=== PATIENT | female | born 1990 | race Caucasian/White ===

== ENCOUNTER → 2017-11-02 | Day surgery (SDC) | payer BC ==
[~2017-11-02] MED LIST: Lactated Ringers 1,000 ML IV SCH; Lidocaine 1%/Sod Bicarbonate in NS 8.4% 1 ML Syringe IV PRN; Pregabalin 25 MG Cap PO ONE; Sodium Chloride 0.9% 10 ML Syringe FLUSH PRN; oxyCODONE ER 10 MG TAB.ER PO ONE
[2017-11-02 07:03] VITALS: BP 113/71
== END | disposition home or self-care (01) ==
LOC: JD.SDS 06:14
PROVIDERS: ATTEND Orthopaedic Surgery
DX: Z53.8 Procedure and treatment not carried out for other reasons (principal)
CPT/HCPCS: 87641; J7120

== ENCOUNTER 2017-11-13 06:06 | Day surgery (SDC) | payer BC ==
[~2017-11-13 06:06] MED LIST changes: -Lactated Ringers 1,000 ML IV SCH; +Lidocaine 1%/Sod Bicarbonate in NS 8.4% 1 ML Syringe IDERM PRN; -Lidocaine 1%/Sod Bicarbonate in NS 8.4% 1 ML Syringe IV PRN; -Pregabalin 25 MG Cap PO ONE; -oxyCODONE ER 10 MG TAB.ER PO ONE
[2017-11-13] MEDS ORDERED: Vancomycin 1 GM, Vancomycin 500 MG in Sodium Chloride 0.9% 250 ML IV ONE (06:30)
[2017-11-13] MEDS: Lactated Ringers 1,000 ML IV SCH ×2 (06:35→13:44)
[2017-11-13] MEDS ORDERED: Pregabalin 25 MG Cap PO ONE (07:00)
[2017-11-13] MEDS ORDERED: oxyCODONE ER 10 MG TAB.ER PO ONE (07:00)
[2017-11-13] MEDS ORDERED: Vancomycin 1 GM, Vancomycin 500 MG in Sodium Chloride 0.9% 500 ML IV ONE (07:02)
--- NOTE | 2017-11-13 07:28 | PCM.PREANE ---
Preanesthetic Assessment - Anesthesia/Transfusion/Family Hx Anesthesia History: Prior Anesthesia Without Reaction Family History of Anesthesia Reaction: No Transfusion History: No Prior Transfusion(s) - Review of Systems General: No Symptoms Pulmonary: No Symptoms Cardiovascular: No Symptoms Gastrointestinal: No Symptoms Neurological: No Symptoms Other: Reports: None - Physical Assessment NPO Status Date: 11/12/17 NPO Status Time: 23:50 Pulse: 88 O2 Sat by Pulse Oximetry: 96 Respiratory Rate: 16 Blood Pressure: 114/78 Temperature: 36.8 C Vital Signs: Last Vital Signs Temp 36.8 C 11/13/17 06:20 Pulse 88 11/13/17 06:20 Resp 16 11/13/17 06:20 BP 114/78 11/13/17 06:20 Pulse Ox 96 11/13/17 06:20 Height: 1.63 m Weight: 81.6 kg ASA Class: 2 Mental Status: Alert & Oriented x3 Dentition: Reports: Normal Dentition Thyro-Mental Finger Breadths: 3 Mouth Opening Finger Breadths: 3 ROM/Head Extension: Full Lungs: Clear to Auscultation, Normal Respiratory Effort Cardiovascular: Regular Rate, Regular Rhythm - Allergies Allergies/Adverse Reactions: Allergies Allergy/AdvReac Type Severity Reaction Status Date / Time No Known Allergies Allergy Verified 11/10/17 10:44 - Anesthesia Plan Pre-Op Medication Ordered: None - Acknowledgements Anesthesia Type Planned: General Anesthesia Pt an Appropriate Candidate for the Planned Anesthesia: Yes Alternatives and Risks of Anesthesia Discussed w Pt/Guardian: Yes Pt/Guardian Understands and Agrees with Anesthesia Plan: Yes PreAnesthesia Questionnaire HEENT History: Reports: Sinusitis, Other (See Below) Other HEENT History: chronic ear infections during Cardiovascular History: Reports: None Respiratory History: Reports: None Gastrointestinal History: Reports: None 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: Musculoskeletal History: Reports: Other (See Below) Other Musculoskeletal History: right ganglion removal Neurological History: Reports: None Psychiatric History: Reports: None Endocrine/Metabolic History: Reports: None Hematologic History: Reports: None Immunologic History: Reports: None Oncologic (Cancer) History: Reports: None Dermatologic History: Reports: None - Infectious Disease History Infectious Disease History: Reports: MRSA Other Infectious Disease History: MRSA 10 YEARS AGO - Past Surgical History Head Surgeries/Procedures: Reports: None HEENT Surgical History: Reports: Oral Surgery Cardiovascular Surgical History: Reports: None Respiratory Surgical History: Reports: None GI Surgical History: Reports: None Female Surgical History: Reports: D&C, Tubal Ligation Endocrine Surgical History: Reports: None Neurological Surgical History: Reports: None Musculoskeletal Surgical History: Reports: None Oncologic Surgical History: Reports: None Dermatological Surgical History: Reports: None - SUBSTANCE USE Smoking Status *Q: Light Tobacco Smoker Tobacco Use Within Last Twelve Months: Cigarettes Second Hand Smoke Exposure: No Days Per Week of Alcohol Use: 0 Number of Drinks Per Day: 1 Total Drinks Per Week: 0 Recreational Drug Use History: No - HOME MEDS Home Medications: Home Meds Cyclobenzaprine [Flexeril] 10 mg PO TID PRN #30 tab 11/13/17 [Rx] Hydrocodone/Acetaminophen [[place] 5-325] 1 - 2 tab PO Q6H PRN #40 tablet [Rx] Enoxaparin Sodium [Lovenox] 30 mg SQ BID #28 11/14/17 [Rx] - CURRENT (IN HOUSE) MEDS Current Meds: Current Medications Lactated Ringer's (Ringers, Lactated) 1,000 mls @ 125 mls/hr IV ASDIRECTED KEL Stop: 11/13/17 23:00 Last Admin: 11/13/17 06:35 Dose: 125 mls/hr Vancomycin HCl 1.5 gm/ Sodium (Chloride) 250 mls @ 250 mls/hr IV ONETIME KEL Vancomycin HCl 1 gm/Vancomycin HCl 500 mg/ Sodium Chloride 500 mls @ 333.333 mls/hr IV ONETIME ONE Stop: 11/13/17 07:59 Lidocaine/Sodium Bicarbonate (Buffered Lidocaine 1% In Ns 8.4%) 0.25 ml IDERM ONETIME PRN PRN Reason: Prior to IV Start Stop: 11/13/17 18:00 Last Admin: 11/13/17 06:35 Dose: 0.25 ml Sodium Chloride (Saline Flush) 10 ml FLUSH ASDIRECTED PRN PRN Reason: Keep Vein Open Stop: 11/13/17 18:00 Discontinued Medications Vancomycin HCl 1 gm/Vancomycin HCl 500 mg/ Sodium Chloride 250 mls @ 250 mls/ hr IV ONETIME ONE Stop: 11/13/17 07:29 Acetaminophen (Ofirmev) 100 mls @ 400 mls/hr IV ONETIME ONE Stop: 11/13/17 07:14 Last Admin: 11/13/17 07:00 Dose: 400 mls/hr Oxycodone HCl (Oxycontin) 10 mg PO ONETIME ONE Stop: 11/13/17 07:01 Pregabalin (Lyrica) 50 mg PO ONETIME ONE Stop: 11/13/17 07:01
[2017-11-13] MEDS ORDERED: EPINEPHrine 1 MG/ML 30 ML MDV ONE (07:36)
[2017-11-13] MEDS ORDERED: Bupivacaine 0.25% 30 ML SDV ONE (07:39)
[2017-11-13] MEDS ORDERED: Propofol 200 MG/20 ML SDV ONE (07:44)
[2017-11-13] MEDS ORDERED: Ondansetron 4 MG/2 ML SDV ONE ×2 (07:44→12:05)
[2017-11-13] MEDS ORDERED: Rocuronium 50 MG/5 ML Vial ONE (07:44)
[2017-11-13] MEDS ORDERED: Lidocaine 1% 4 ML ONE (07:45)
[2017-11-13] MEDS ORDERED: Midazolam 1 MG/ML 2 ML SDV ONE (07:45)
[2017-11-13] MEDS ORDERED: fentaNYL 250 MCG/5 ML SDV ONE ×2 (07:45→10:04)
[2017-11-13] MEDS ORDERED: ceFAZolin 1 GM Vial ONE (07:52)
[2017-11-13] MEDS ORDERED: HYDROmorphone 1 MG/ML Syringe ONE (09:11)
[2017-11-13] MEDS ORDERED: Lactated Ringers 1,000 ML ONE (09:15)
[2017-11-13] MEDS ORDERED: HYDROmorphone 0.5 MG/0.5 ML Syringe IVPUSH PRN (11:01)
--- NOTE | 2017-11-13 11:04 | PCM.POSTAN ---
POST ANESTHESIA ASSESSMENT - MENTAL STATUS Mental Status: Somnolent - VITAL SIGNS Pulse Rate: 85 SaO2: 93 Resp Rate: 8 Blood Pressure: 95/55 Temperature: 97.6 C - RESPIRATORY Respiratory Status: Respiratory Rate WNL, Airway Patent, O2 Saturation Stable, Supplemental Oxygen - CARDIOVASCULAR CV Status: Pulse Rate WNL, Blood Pressure Stable - GASTROINTESTINAL GI Status: No Symptoms - PAIN Pain Score: 0 - POST OP HYDRATION Hydration Status: Adequate & Stable - OBSERVATIONS Free Text/Narrative:: no anesthesia complications noted
[2017-11-13] MEDS ORDERED: Ketorolac 30 MG/ML SDV IVPUSH PRN (11:13)
[2017-11-13] MEDS: fentaNYL 100 MCG/2 ML SDV IVPUSH PRN ×2 (11:32→11:41)
--- NOTE | 2017-11-13 11:43 | CR ---
Right hip: Six fluoroscopic spot views were obtained utilizing C-arm device. Study shows arthroscopy of the right hip. Fluoroscopy time given as 122.6 seconds. Impression: 1. Procedural study as noted above. Diagnostic code #2
[2017-11-13] MEDS ORDERED: Ondansetron 4 MG/2 ML SDV IVPUSH SCH (12:10)
[2017-11-13] MEDS ORDERED: Acetaminophen/HYDROcodone 325-5 MG Tab PO PRN (12:58)
[2017-11-13 15:48] VITALS: BP 111/67
--- NOTE | 2017-11-17 08:44 | PCM.OPNOTE ---
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
--- NOTE | 2017-11-17 10:09 | OR ---
DATE OF OPERATION: 11/13/2017 SURGEON: Devang Gonzalez MD OPERATION PERFORMED: Right hip video arthroscopy with labral repair, acetabuloplasty and femoroplasty. PREOPERATIVE DIAGNOSIS: Right hip femoroacetabular impingement. POSTOPERATIVE DIAGNOSIS: Right hip femoroacetabular impingement. ANESTHESIA: General endotracheal intubation with local. ANESTHESIA PROVIDER: Sukh Landrum CRNA. MANAGER GAMING: Mini Pierre PA-C ESTIMATED BLOOD LOSS: 5 mL. COMPLICATIONS: None. CONDITION: Stable. DESCRIPTION OF PROCEDURE: The patient was identified in the preop holding area. Proper site was marked and identified by the surgeon. The patient was taken back to the operating theater where after adequate anesthesia, the patient's left lower extremity was placed in a boot and no traction was applied. Right lower extremity was then placed in a traction boot and gross traction was applied. The patient's patella was straight superoinferior with floor. At this time, the right hip was then sterilely prepped and draped in the usual sterile fashion. OR time-out was performed. The patient received 2 g IV Ancef. At this time fluoroscopy was utilized for the starting point and then 2-1/2 turns of traction was applied. Using a spinal needle, proper site was identified for the lateral portal. Incision was made and the trocar was introduced. At this time it was found to be in adequate position. Spinal needle was then used for the anterolateral portal and incision was made for this and scope trocar was placed. At this time, using a Samurai blade, takedown of the capsule was done from medially to laterally to the lateral portal. At this time, it was found to have adequate visualization of the entirety of the labrum. There was no significant fraying of the labrum. There was no chondromalacia noted either the femoral head or the acetabulum. At this time, using C-arm fluoroscopy, it was noted that the patient had significant pincer lesion both anterior and laterally. At this time with use of a cautery device, we were able to visualize the entire rim of the acetabulum from the roughly 12 o'clock position all the way to the 9 o'clock position. At this time with use of 4-0 full-radius bur, I was able to resect roughly 7 mm of pincer lesion noted on the anterior and lateral aspect of the acetabulum. At this time, the patient was noted to have need for stabilization of the labrum after the acetabuloplasty. Starting on most anterior aspect we were able to place 2.3 mm Sravan all-inside knotless anchors for 2.3 mm Sravan knotless anchors starting at the 12 o'clock position and then placing [address] to the lateral position. It was noted to have good watertight repair of the labrum at this point. The C-arm fluoroscopy showed good acetabuloplasty with resection of the pincer lesion at this time. At this time, attention was turned to the femur. On direct visualization under manipulation of the femur on flexion and internal rotation, it was noted to have a CAM lesion noted near the head and neck junction. At this time, using a 4-0 full-radius bur, I was able to resect without doing much of the T-capsulotomy of the small CAM lesion that was there. It was noted to have significant resection of the CAM lesion where the previous chondromalacia changes were noted at the head and neck junction. At this time, the patient's hip was brought through range of motion. There were no signs of femoral or acetabular impingement with flexion, abduction and internal rotation. Patient subsequently did not have a capsular repair as her capsule was tight throughout the case and I did not do a T- capsulotomy. At this time, excess saline was drained from the hip. A 3-0 nylon simple suture was used for closure of the portal incisions. Marcaine 0.25% was injected near the lateral femoral cutaneous nerve at the ASIS. The patient was subsequently had a sterile soft dressing applied and was sent to PACU in stable condition. RASHAWN /[id number]
== END 2017-11-13 15:20 | disposition home or self-care (01) ==
LOC: JD.SDS 06:06
PROVIDERS: ATTEND Orthopaedic Surgery
DX: M25.851 Other specified joint disorders, right hip (principal); Z98.51 Tubal ligation status; F17.210 Nicotine dependence, cigarettes, uncomplicated
CPT/HCPCS: 29914; 29915; 76000; A9270; C1713; J0171; J0690; J1170; J1885; J2250; J2405; J3010; J3370; J3490; J7040; J7120; J2704

== ENCOUNTER 2021-06-23 07:38 | Day surgery (SDC) | payer BC ==
--- NOTE | 2021-06-22 13:03 | PCM.PREANE ---
<Tammi Oneal - Last Filed: 06/22/21 13:02> Preanesthetic Assessment - Procedure Proposed Procedure: Laparoscopic Assisted Vaginal Hysterectomy - Anesthesia/Transfusion/Family Hx Anesthesia History: Prior Anesthesia Without Reaction Transfusion History: No Prior Transfusion(s) Intubation History: Unknown - Review of Systems Pulmonary: No Symptoms (quit smoking in 2018/Vapes: ETOH:) - Physical Assessment NPO Status Date: 06/22/21 Vital Signs: HR: Sat: Temp: Resp: B/P: Height: 1.63 m ASA Class: 2 Mental Status: Alert & Oriented x3 - Allergies Allergies/Adverse Reactions: Allergies Allergy/AdvReac Type Severity Reaction Status Date / Time No Known Allergies Allergy Verified 06/22/21 15:33 - Anesthesia Plan Pre-Op Medication Ordered: None - Acknowledgements Anesthesia Type Planned: General Anesthesia Pt an Appropriate Candidate for the Planned Anesthesia: Yes Alternatives and Risks of Anesthesia Discussed w Pt/Guardian: Yes Pt/Guardian Understands and Agrees with Anesthesia Plan: Yes PreAnesthesia Questionnaire HEENT History: Reports: Sinusitis, Other (See Below) Other HEENT History: chronic ear infections during Cardiovascular History: Reports: None Respiratory History: Reports: None Gastrointestinal History: Reports: None RN INTERNSHIP History: Reports: Musculoskeletal History: Reports: Other (See Below) Other Musculoskeletal History: right ganglion removal Neurological History: Reports: None Psychiatric History: Reports: None Endocrine/Metabolic History: Reports: None Hematologic History: Reports: None Immunologic History: Reports: None Oncologic (Cancer) History: Reports: None Dermatologic History: Reports: None - Infectious Disease History Infectious Disease History: Reports: MRSA Other Infectious Disease History: MRSA 10 YEARS AGO - Past Surgical History Head Surgeries/Procedures: Reports: None HEENT Surgical History: Reports: Oral Surgery Cardiovascular Surgical History: Reports: None Respiratory Surgical History: Reports: None GI Surgical History: Reports: None Female Surgical History: Reports: D&C, Tubal Ligation Endocrine Surgical History: Reports: None Neurological Surgical History: Reports: None Musculoskeletal Surgical History: Reports: None Oncologic Surgical History: Reports: None Dermatological Surgical History: Reports: None - HOME MEDS Home Medications: Home Meds . [No Known Home Meds] 06/22/21 [History] <Supriya Reyes - Last Filed: 06/23/21 08:07> Preanesthetic Assessment - Anesthesia/Transfusion/Family Hx Family History of Anesthesia Reaction: No - Review of Systems General: No Symptoms Cardiovascular: No Symptoms Gastrointestinal: No Symptoms Neurological: No Symptoms Other: Reports: None - Physical Assessment Weight: 75.7 kg Airway Class: Mallampati = 2 Dentition: Reports: Normal Dentition Thyro-Mental Finger Breadths: 3 Mouth Opening Finger Breadths: 3 ROM/Head Extension: Full Lungs: Clear to Auscultation, Normal Respiratory Effort Cardiovascular: Regular Rate, Regular Rhythm - Lab Values: Laboratory Last Values WBC 4.01 K/mm3 (3.98-10.04) 06/23/21 07:44 RBC 4.54 M/mm3 (3.98-5.22) 06/23/21 07:44 Hgb 14.2 gm/dl (11.2-15.7) D 06/23/21 07:44 Hct 41.0 % (34.1-44.9) 06/23/21 07:44 MCV 90.3 fl (79.4-94.8) D 06/23/21 07:44 MCH 31.3 pg (25.6-32.2) 06/23/21 07:44 MCHC 34.6 g/dl (32.2-35.5) 06/23/21 07:44 RDW Std Deviation 39.3 fL (36.4-46.3) 06/23/21 07:44 Plt Count 197 K/mm3 (182-369) 06/23/21 07:44 MPV 10.6 fl (9.4-12.3) 06/23/21 07:44 Neut % (Auto) 50.4 % (34.0-71.1) 06/23/21 07:44 Lymph % (Auto) 33.2 % (19.3-51.7) 06/23/21 07:44 Love % (Auto) 13.5 % (4.7-12.5) H 06/23/21 07:44 Eos % (Auto) 2.7 (0.7-5.8) 06/23/21 07:44 Baso % (Auto) 0.2 % (0.1-1.2) 06/23/21 07:44 Neut # (Auto) 2.02 K/mm3 (1.56-6.13) 06/23/21 07:44 Lymph # (Auto) 1.33 K/mm3 (1.18-3.74) 06/23/21 07:44 Love # (Auto) 0.54 K/mm3 (0.24-0.36) H 06/23/21 07:44 Eos # (Auto) 0.11 K/mm3 (0.04-0.36) 06/23/21 07:44 Baso # (Auto) 0.01 K/mm3 (0.01-0.08) 06/23/21 07:44 - Blood Blood Available: No Product(s) Available: None PreAnesthesia Questionnaire - CURRENT (IN HOUSE) MEDS Current Meds: Current Medications Lactated Ringer's (Ringers, Lactated) 1,000 mls @ 125 mls/hr IV ASDIRECTED KEL Stop: 06/23/21 23:00 Lidocaine/Sodium Bicarbonate (Lidocaine 1%/Sod Bicarbonate In Ns 8.4% 1 Ml Syringe) 0.25 ml IDERM ONETIME PRN PRN Reason: Prior to IV Start Stop: 06/23/21 18:00 Sodium Chloride (Sodium Chloride 0.9% 10 Ml Syringe) 10 ml FLUSH ASDIRECTED PRN PRN Reason: Keep Vein Open Stop: 06/23/21 18:00 Discontinued Medications Fentanyl (Fentanyl 250 Mcg/5 Ml Sdv) Confirm Administered Dose 250 mcg .ROUTE .STK-MED ONE Stop: 06/23/21 06:57 Lidocaine HCl (Xylocaine-Mpf 1%) Confirm Administered Dose 4 mls @ as directed .ROUTE .STK-MED ONE Stop: 06/23/21 06:56 Midazolam HCl (Midazolam 1 Mg/Ml 2 Ml Sdv) Confirm Administered Dose 2 mg .ROUTE .STK-MED ONE Stop: 06/23/21 06:57 Ondansetron HCl (Ondansetron 4 Mg/2 Ml Sdv) Confirm Administered Dose 4 mg .ROUTE .STK-MED ONE Stop: 06/23/21 06:56 Propofol (Propofol 200 Mg/20 Ml Sdv) Confirm Administered Dose 200 mg .ROUTE .STK-MED ONE Stop: 06/23/21 06:56 Rocuronium [place] (Rocuronium 50 Mg/5 Ml Vial) Confirm Administered Dose 50 mg .ROUTE .STK-MED ONE Stop: 06/23/21 06:56
[~2021-06-23 07:38] MED LIST changes: +Lidocaine 1% 4 ML ONE; +Midazolam 1 MG/ML 2 ML SDV ONE; +Ondansetron 4 MG/2 ML SDV ONE; +Propofol 200 MG/20 ML SDV ONE; +Rocuronium 50 MG/5 ML Vial ONE; +fentaNYL 250 MCG/5 ML SDV ONE
[2021-06-23] MEDS: Lactated Ringers 1,000 ML IV SCH ×2 (07:44→09:03)
--- NOTE | 2021-06-23 07:53 | PCM.OPNOTE ---
- General Post-Op/Procedure Note Date of Surgery/Procedure: 06/23/21 Operative Procedure(s): Laparoscopic assisted vaginal hysterectomy Findings: Grossly normal appearance of the uterus and bilateral fallopian tubes. Slight thickening/reaction thought to maybe be from recent LEEP Pre Op Diagnosis: Cervical dysplasia. 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 The patient was taken to the Operating Room where general anesthesia was induced without complication. The patient was placed in dorsal lithotomy with Nikhil Stirrups and an exam under anesthesia revealed the findings detailed above. The patient was then prepped and draped in the usual sterile fashion. A sterile bivalve speculum was placed into the vagina and the anterior lip of the cervix was grasped with a single tooth tenaculum and a Complete Solar uterine manipulator was placed to allow uterine manipulation throughout the procedure. The speculum and single tooth tenaculum were removed from the vagina. A Quinteros catheter was placed in sterile fashion. Attention was then turned to the patients abdomen where a Veress needle was carefully introduced into the peritoneal cavity while tenting the abdominal wall. Intraperitoneal placement was confirmed by free flow of saline into the abdomen from a syringe open to gravity and with a low intraabdominal pressure with insufflation of C02 gas on low flow. The gas was increased to high flow and a pneumoperitoneum was obtained with C02 gas to a pressure of 15 mm Hg. A 5 mm skin incision was made in a vertical fashion in the umbilical fold and a 5 mm blunt trocar was inserted into the abdomen with direct visualization of the laparoscope through the clear view trocar lens. 5 mm skin incisions were made in both the left and right lower quadrants approximately 10 cm lateral and 3 cm inferior to the umbilicus. 5 mm blunt trocars were inserted into the abdomen under direct visualization with care to avoid the abdominal wall vasculature. A blunt probe and grasper were inserted through the accessory ports and a survey of the abdomen revealed the findings detailed above. The round ligament on the right was then elevated, cauterized, and transected with the Ligasure. Hemostasis was noted. Next, the vesicouterine peritoneum was elevated gently with a blunt grasper and the LigaSure and blunt dissection were used dissect the vesicouterine peritoneum to make a bladder flap. Two more small bites along the right side of the uterus were made with the Ligasure to skeletonize the uterine artery. Hemostasis was noted. The exact same procedure was carried out on the left. The CO2 gas was turned off and the laparoscope was removed. Attention was then turned to the vaginal portion of the procedure. A short weighted speculum was placed in the vagina, and the cervix was grasped with a double toothed tenaculum. The cervix was injected circumferentially with 10 mL of 1% lidocaine with dilute epinephrine. The cervix was then circumferentially incised with a scalpel. A Raytec was used to bluntly dissect the cervix circumferentially until an avascular plane was obtained. The posterior cul-de-sac was entered sharply without difficulty. A 0-Vicryl pop-off suture was placed at six o'clock to include the posterior vaginal mucosa and posterior peritoneum. This stitch was tagged with a straight clamp to help with vaginal cuff closure at the end of the case. The short weighted speculum was replaced by the long weighted speculum. The uterosacral ligaments were grasped on either side with the LigaSure, cauterized, and transected. Hemostasis was assured. The bladder was dissected off the pubovesical cervical fascia anteriorly with a sponge and blunt dissection. The anterior cul-de-sac was then entered sharply without difficulty. The cardinal ligaments were then serially clamped on both sides with the LigaSure, cauterized, and transected. The uterine arteries were then clamped with the LigaSure, cauterized, and transected. Hemostasis was then noted. The fundus and adnexa were confirmed to be free of any further peritoneal attachments and then were pulled out through the vagina. The posterior vaginal cuff was closed with a running, locked 0 Vicryl suture. The vaginal cuff was closed with two separate 0-Vicryl sutures started at either apex and then run in a locking fashion towards the midline. Hemostasis was noted. Attention was then again turned to the abdomen. All members of the surgical team changed gloves. The laparoscope was again inserted and the abdomen was again insufflated with CO2. The pedicles were again visualized. Eleazar seal was placed along the vaginal cuff. The patient was taken out of Trendelenberg position. The accessory trocars were removed under direct visualization. The pneumoperitoneum was allowed to escape. The umbilical trocar was removed and lastly the camera was removed from the abdomen under direct visualization to confirm no herniation into the port site. All skin incisions were re- approximated with 4-0 Monocryl and sealed with Dermabond. Hemostasis was noted. A total of 10 cc of 0.25% Marcaine was injected into the subcutaneous tissues surrounding the skin incisions for local anesthesia. All sponge, lap, needle, and instrument counts were correct x 2. The patient tolerated the procedure well and there were no complications.
[2021-06-23] MEDS ORDERED: ceFAZolin 1 GM Vial ONE (08:50)
[2021-06-23] MEDS ORDERED: Dexamethasone 4 MG/ML 5 ML MDV ONE (09:29)
[2021-06-23] MEDS ORDERED: HYDROmorphone 0.5 MG/0.5 ML Syringe IVPUSH PRN (09:32)
[2021-06-23] MEDS ORDERED: fentaNYL 100 MCG/2 ML SDV IVPUSH PRN (09:32)
[2021-06-23] MEDS ORDERED: Ondansetron 4 MG/2 ML SDV IVPUSH PRN (09:32)
[2021-06-23] MEDS: Bupivacaine 0.5% 30 ML SDV ONE ×2 (09:36→09:58)
[2021-06-23] MEDS ORDERED: Ketamine 500 mg/10 ML MDV ONE (09:39)
[2021-06-23] MEDS ORDERED: HYDROmorphone 0.5 MG/0.5 ML Syringe ONE (09:39)
[2021-06-23] MEDS: Lidocaine 1% with EPINEPHrine 1:100,000 10 ML MDV ONE ×2 (09:58→10:00)
[2021-06-23] MEDS ORDERED: Ketorolac 30 MG/ML SDV ONE (10:17)
[2021-06-23] MEDS ORDERED: Lactated Ringers 1,000 ML ONE (10:56)
--- NOTE | 2021-06-23 11:21 | PCM.POSTAN ---
POST ANESTHESIA ASSESSMENT - MENTAL STATUS Mental Status: Alert, Oriented - VITAL SIGNS Vital Signs: Last Vital Signs Temp 99.1 F 06/23/21 07:45 Pulse 91 06/23/21 07:45 Resp 16 06/23/21 07:45 BP 120/81 06/23/21 07:45 Pulse Ox 96 06/23/21 07:45 1114 99 16 98.1 104/68 98% - RESPIRATORY Respiratory Status: Respiratory Rate WNL, Airway Patent, O2 Saturation Stable, Supplemental Oxygen - CARDIOVASCULAR CV Status: Pulse Rate WNL, Blood Pressure Stable - GASTROINTESTINAL GI Status: No Symptoms - PAIN Pain Score: 0 - POST OP HYDRATION Hydration Status: Adequate & Stable
--- NOTE | 2021-06-23 13:17 | PCM48HPAN ---
Post Anesthesia Note - EVALUATION WITHIN 48HRS OF ANESTHETIC Vital Signs in Normal Range: Yes Patient Participated in Evaluation: Yes Respiratory Function Stable: Yes Airway Patent: Yes Cardiovascular Function Stable: Yes Hydration Status Stable: Yes Pain Control Satisfactory: Yes Nausea and Vomiting Control Satisfactory: Yes Mental Status Recovered: Yes Vital Signs: Last Vital Signs Temp 98.2 F 06/23/21 12:15 Pulse 64 06/23/21 12:50 Resp 16 06/23/21 12:50 BP 98/70 06/23/21 12:50 Pulse Ox 95 06/23/21 12:50 - COMMENTS/OBSERVATIONS Free Text/Narrative:: Minimal pain- got dizzy when she was up. will increase fluids.
[2021-06-23 13:43] VITALS: BP 109/76
[2021-06-23 14:58] VITALS: PULSE 77
== END 2021-06-23 14:16 | disposition home or self-care (01) ==
LOC: JD.SDS 07:38
PROVIDERS: ATTEND Obstetrics & Gynecology
DX: D25.2 Subserosal leiomyoma of uterus (principal); N87.9 Dysplasia of cervix uteri, unspecified; N72 Inflammatory disease of cervix uteri; Z98.890 Other specified postprocedural states; Z87.891 Personal history of nicotine dependence
CPT/HCPCS: 36415; 58550; 80048; 85025; 86850; 86900; 86901; J0690; J1100; J1170; J1885; J2250; J2405; J2704; J2710; J3010; J3490; J7120; 00944